=== PATIENT | male | born 1950 | race Caucasian/White ===

== ENCOUNTER 2016-07-02 07:39 | Observation (INO) | payer MEDICARE ==
[2016-07-02] MEDS ORDERED: NS 0.9% 1000 ML* 1,000 ML IV ONE ×2 (07:58→12:30)
[2016-07-02] MEDS ORDERED: Piperac/Tazob 3.375 gm in NS* 3.375 GM/100 ML BAG IVPB ONE (08:00)
--- NOTE | 2016-07-02 08:41 | RAD ---
INDICATION: Short of breath. Cough. COMPARISON: August 09, 2008 TECHNIQUE: PA and lateral dual-energy views were obtained. FINDINGS: Bones/Soft Tissues: There are no acute bony findings. Cardiomediastinal: The cardiomediastinal silhouette is normal. Lungs: There are no infiltrates. Pleura: There are no pleural effusions. Other: None IMPRESSION: NO ACTIVE DISEASE
[2016-07-02 08:46] LABS: Albumin 4.2 g/dL (3.2-5.2); BUN/Creatinine Ratio 16.7 (8-20); C Reactive Protein 183.73 mg/L (< 5.00); Calcium 9.3 mg/dL (8.6-10.3); EGFR African American 82.9 (>60); EGFR Non-African American 64.5 (>60); Globulin 3.6 g/dL (2-4); Total Bilirubin 0.7 mg/dL (0.2-1.0); Total Protein 7.8 g/dL (6.4-8.9)
[2016-07-02 08:47] LABS: Troponin I 0.03 ng/mL (<0.04)
[2016-07-02 08:52] LABS: Hematocrit 48 % (42-52); Hemoglobin 16.3 g/dl (14.0-18.0); Mean Corpuscular HGB Conc 34 g/dl (31-36); Mean Corpuscular Hemoglobin 31 pg (27-31); Mean Corpuscular Volume 91 fL (80-94); Mean Platelet Volume 8 um3 (7.4-10.4); Red Blood Count 5.33 10^6/ul (4.0-5.4); Red Cell Distribution Width 16 % (10.5-15); White Blood Count 9.7 10^3/ul (3.5-10.8)
[2016-07-02 08:59] LABS: Add Diff/Slide Review? Slide Review Added; Comments Flag Yes
[2016-07-02] MEDS ORDERED: Iohexol 350* (CONTRAST) 500 ML MDV IV ONE (10:35)
--- NOTE | 2016-07-02 10:58 | RAD ---
INDICATION: Chest pain. Short of breath. Evaluate for pulmonary embolus. COMPARISON: Chest x-ray July 02, 2016; CT chest October 18, 2015 TECHNIQUE: Axial source images were obtained from the thoracic inlet to the hemidiaphragms following administration of [address] angiographic technique was utilized. Coronal and sagittal reconstructed images were acquired. CHEST FINDINGS: Neck/thyroid: The visualized neck to include the thyroid appear normal. Chest wall: There are no acute abnormalities of the bony thorax or chest wall. There is no supraclavicular, infraclavicular, or axillary lymphadenopathy. Lungs : There are subtle, patchy, peripheral interstitial infiltrates in the upper and lower lung bravo bilaterally most consistent with an acute pneumonitis. The pulmonary interstitium appears normal. There are no endobronchial lesions. Cardiomediastinal structures: There is no CT evidence of acute pulmonary embolic disease. The heart is normal in size. There is no pericardial effusion. There is no evidence of aortic aneurysm or dissection. There are mildly prominent subcarinal lymph nodes measuring up to 1.3 cm in short axis. These are new relative to the earlier CT examination and may be reactive but should be reassessed. The patient is scheduled for low dose screening CT evaluation of the chest in September 2016 in these lymph nodes could probably be assessed with this technique. The esophagus appears normal. Pleura : There are no pleural-based masses or effusions. Other: None. IMPRESSION: NO CT EVIDENCE OF ACUTE PULMONARY EMBOLIC DISEASE. PATCHY INTERSTITIAL PNEUMONITIS. MILD MEDIASTINAL LYMPHADENOPATHY. SUGGEST FOLLOW-UP (SEE ABOVE)
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
[2016-07-02] MEDS ORDERED: LORazepam TAB(*) 1 MG PO ONE (12:30)
[2016-07-02] MEDS ORDERED: Ondansetron INJ* 2 MG/ML VIAL IV PRN (12:30)
[2016-07-02] MEDS ORDERED: Acetaminophen TAB* 325 MG PO PRN (12:30)
[2016-07-02] MEDS ORDERED: Albuterol 2.5 MG/3 ML NEB.SOL* (0.083%) INH PRN (12:30)
[2016-07-02] MEDS ORDERED: Dextrose 50% Syringe 50 ML* 25 GM/50 ML SYRINGE IV PUSH PRN (12:30)
[2016-07-02] MEDS ORDERED: Piperac/Tazob 3.375 gm in NS* 3.375 GM/100 ML BAG IVPB SCH (13:00)
[2016-07-02] MEDS ORDERED: Nicotine PATCH 21 MG/24 HR* PATCH TRANSDERM SCH (13:00)
[2016-07-02] MEDS: methylPREDNISolone SOD SUCC* 125 MG 2 ML VIAL IV SCH (13:22)
[2016-07-02] MEDS: NS 0.9% 1000 ML* 1,000 ML IV SCH ×2 (13:22→13:24)
[2016-07-02] MEDS: cloNIDine TAB* 0.1 MG PO SCH ×2 (13:23→20:01)
[2016-07-02] MEDS: HYDROcodone/ACETAMIN 5-325 MG* 1 TAB PO PRN ×2 (13:23→20:00)
[2016-07-02] MEDS: Heparin VIAL(*) 5000 UNITS/ML VIAL (FIVE THOUSAND) SUBCUT SCH ×2 (13:27→23:40)
[2016-07-02] MEDS: Piperac/Tazob 3.375 gm in NS* 3.375 GM/100 ML BAG IVPB SCH ×2 (14:08→23:31)
[2016-07-02] MEDS: Gabapentin CAP(*) 400 MG PO SCH ×2 (14:10→20:00)
[2016-07-02] MEDS: Albuterol/Ipratropium NEB.SOL* Albuterol 2.5 MG/Ipratropium 0.5 MG 3 ML INH SCH ×3 (15:25→23:23)
[2016-07-02 17:01] LABS: Urine Bilirubin Negative (Negative); Urine Glucose 3+(>=500 mg/dL) (Negative); Urine Nitrite Negative (Negative)
[2016-07-02] MEDS: Insulin LISPRO* 1 UNITS UNIT SUBCUT SCH (17:21)
[2016-07-02] MEDS: Codeine TAB* 15 MG PO PRN ×2 (17:21→23:33)
[2016-07-02] MEDS: Mometasone/Formoter 200/5 MDI INH SCH (19:37)
[2016-07-02] MEDS: Mirtazapine TAB* 15 MG PO SCH (20:00)
[2016-07-02] MEDS: busPIRone TAB* 10 MG PO SCH (20:00)
[2016-07-02] MEDS: Atorvastatin* 10 MG TAB PO SCH (20:01)
[2016-07-02] MEDS ORDERED: Nicotine Inhaler* 10 MG AMP INH PRN (20:55)
[2016-07-02] MEDS ORDERED: Nicotine Patch Removal NOTE FOLLOW UP SCH (21:00)
[2016-07-02] MEDS ORDERED: Insulin GLARGINE(*) 1 UNITS UNIT SUBCUT SCH (21:00)
[2016-07-02] MEDS ORDERED: Mouth Piece, Nicotine* 1 EACH CARTRIDGE ONE (21:30)
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
[2016-07-02] MEDS: oxyCODONE TAB* 5 MG TAB PO PRN (23:31)
[2016-07-02] MEDS: Zolpidem TAB* 10 MG PO PRN (23:31)
[2016-07-03] MEDS: methylPREDNISolone SOD SUCC* 125 MG 2 ML VIAL IV SCH ×2 (01:29→14:09)
[2016-07-03] MEDS: Albuterol/Ipratropium NEB.SOL* Albuterol 2.5 MG/Ipratropium 0.5 MG 3 ML INH SCH ×7 (03:13→23:49)
[2016-07-03] MEDS: Piperac/Tazob 3.375 gm in NS* 3.375 GM/100 ML BAG IVPB SCH ×3 (05:42→21:56)
[2016-07-03] MEDS: Heparin VIAL(*) 5000 UNITS/ML VIAL (FIVE THOUSAND) SUBCUT SCH ×3 (05:43→21:56)
[2016-07-03] MEDS: oxyCODONE TAB* 5 MG TAB PO PRN ×3 (06:14→22:03)
[2016-07-03 06:45] LABS: Hematocrit 42 % (42-52); Hemoglobin 14.4 g/dl (14.0-18.0); Mean Corpuscular HGB Conc 34 g/dl (31-36); Mean Corpuscular Hemoglobin 31 pg (27-31); Mean Corpuscular Volume 92 fL (80-94); Mean Platelet Volume 8 um3 (7.4-10.4); Red Blood Count 4.64 10^6/ul (4.0-5.4); Red Cell Distribution Width 17 % (10.5-15)
[2016-07-03 07:02] LABS: BUN/Creatinine Ratio 16.4 (8-20); Calcium 8.9 mg/dL (8.6-10.3); EGFR African American 81.3 (>60); EGFR Non-African American 63.2 (>60); Potassium 4.1 mmol/L (3.5-5.0)
[2016-07-03] MEDS: Mometasone/Formoter 200/5 MDI INH SCH ×2 (07:50→19:37)
[2016-07-03] MEDS: Gabapentin CAP(*) 400 MG PO SCH ×3 (08:42→21:56)
[2016-07-03] MEDS: busPIRone TAB* 10 MG PO SCH ×2 (08:43→21:55)
[2016-07-03] MEDS: cloNIDine TAB* 0.1 MG PO SCH ×3 (08:43→21:55)
[2016-07-03] MEDS: Insulin LISPRO* 1 UNITS UNIT SUBCUT SCH ×3 (08:44→17:23)
[2016-07-03] MEDS ORDERED: Albuterol/Ipratropium NEB.SOL* Albuterol 2.5 MG/Ipratropium 0.5 MG 3 ML INH SCH (10:00)
[2016-07-03] MEDS: Nicotine PATCH 21 MG/24 HR* PATCH TRANSDERM SCH (10:09)
--- NOTE | 2016-07-03 10:53 | PN ---
Subjective Date of Service: 07/03/16 Interval History: Pt reports he feels much better today but continues to have harsh cough. non- productive. Reports initially when his cough started he also had nasal congestion. Denies SOB or CP. no fevers or chills. Denies N/V/D. Reports good appetite. Denies Hx of COPD dx in the past. reports 20+ smoking hx. Objective Active Medications: Acetaminophen (Tylenol Tab*) 650 mg PO Q4H PRN PRN Reason: FEVER/PAIN Albuterol (Ventolin 2.5 Mg/3 Ml Neb.Krista*) 2.5 mg INH Q2H PRN PRN Reason: SOB/WHEEZING Albuterol/Ipratropium (Duoneb (Albuterol 2.5 Mg/Ipratropium 0.5 Mg)) 1 neb INH Q4HR [facility] Atorvastatin Calcium (Lipitor*) 10 mg PO 2100 [facility] Last Admin: 07/02/16 20:01 Dose: 10 mg Buspirone HCl (Buspar Tab*) 30 mg PO BID [facility] Last Admin: 07/03/16 08:43 Dose: 30 mg Clonidine HCl (Catapres Tab*) 0.1 mg PO TID [facility] Last Admin: 07/03/16 08:43 Dose: 0.1 mg Codeine Sulfate (Codeine Tab*) 15 mg PO Q4H PRN PRN Reason: COUGH Last Admin: 07/02/16 23:33 Dose: 15 mg Dextrose (D50w Syringe 50 Ml*) 12.5 gm IV PUSH .FOR FS < 60 - SS PRN PRN Reason: FS < 60 Gabapentin (Neurontin Cap(*)) 800 mg PO TID [facility] Last Admin: 07/03/16 08:42 Dose: 800 mg Heparin Sodium (Porcine) (Heparin Vial(*)) 5,000 units SUBCUT Q8HR [facility] Last Admin: 07/03/16 05:43 Dose: Not Given Sodium Chloride (Ns 0.9% 1000 Ml*) 1,000 mls @ 100 mls/hr IV PER RATE [facility] Last Admin: 07/02/16 13:24 Dose: 100 mls/hr Piperacillin Sod/Tazobactam Sod (Zosyn 3.375 Gm In Ns Premix*) 3.375 gm in 100 mls @ 25 mls/hr IVPB Q8H [facility] Last Admin: 07/03/16 05:42 Dose: 25 mls/hr Insulin Glargine (Lantus(*)) 10 units SUBCUT BEDTIME [facility] Last Admin: 07/02/16 20:01 Dose: 10 units Insulin Human Lispro (Humalog*) 0 units SUBCUT AC [facility] PRN Reason: Protocol Last Admin: 07/03/16 08:44 Dose: 12 unit Methylprednisolone Sodium Succinate (Solu-Medrol*) 60 mg IV Q12H [facility] Last Admin: 07/03/16 01:29 Dose: 60 mg Mirtazapine (Remeron Tab*) 45 mg PO BEDTIME [facility] Last Admin: 07/02/16 20:00 Dose: 45 mg Mometasone Furoate/Formoterol Fumar (Dulera 200/5 Mdi*) 2 puff INH BID [facility] Last Admin: 07/03/16 07:50 Dose: 2 puff Nicotine (Nicotine Inhaler*) 10 mg INH Q2H PRN PRN Reason: CRAVING Last Admin: 07/02/16 23:32 Dose: 10 mg Nicotine (Nicotine Patch 21 Mg/24 Hr*) 1 patch TRANSDERM Q24H [facility] Last Admin: 07/03/16 10:09 Dose: 1 patch Ondansetron HCl (Zofran Inj*) 4 mg IV Q6H PRN PRN Reason: NAUSEA Oxycodone HCl (Roxycodone Tab*) 5 mg PO Q4H PRN PRN Reason: PAIN Last Admin: 07/03/16 06:14 Dose: 5 mg Pharmacy Profile Note (Nicotine Patch Removal Note*) 1 note FOLLOW UP 2100 [facility] Zolpidem Tartrate (Ambien Tab*) 10 mg PO BEDTIME PRN PRN Reason: INSOMNIA Last Admin: 07/02/16 23:31 Dose: 10 mg Vital Signs 07/02/16 07/03/16 07/03/16 23:48 01:31 01:33 Temperature 98.2 F Pulse Rate 108 Respiratory 16 16 16 Rate Blood Pressure 152/75 (mmHg) O2 Sat by Pulse 95 Oximetry 07/03/16 07/03/16 07/03/16 03:13 06:14 07:54 Temperature Pulse Rate 92 94 Respiratory 20 18 16 Rate Blood Pressure (mmHg) O2 Sat by Pulse 98 96 Oximetry 04/10/17 04/10/17 04/10/17 08:08 08:14 08:42 Temperature 98.0 F Pulse Rate 105 Respiratory 16 16 18 Rate Blood Pressure 138/77 (mmHg) O2 Sat by Pulse 96 Oximetry Oxygen Devices in Use Now: Nasal Cannula - 2L NC Appearance: 66 yo male sitting up in a chair in NAD. A+O x3 - noted cough Eyes: No Scleral Icterus, PERRLA Ears/Nose/Mouth/Throat: NL Teeth, Lips, Gums, Mucous Membranes Moist Neck: NL Appearance and Movements; NL JVP Respiratory: Symmetrical Chest Expansion and Respiratory Effort, - - right LL crackles, good aeration throughout otherwise Cardiovascular: NL Sounds; No Murmurs; No JVD, RRR, No Edema Abdominal: NL Sounds; No Tenderness; No Distention Extremities: No Edema, No Clubbing, Cyanosis Skin: No Rash or Ulcers, No Nodules or Sclerosis Neurological: Alert and Oriented x 3, NL Sensation, NL Gait, NL Muscle Strength and Tone Lines/Tubes/Other Access: Clean, Dry and Intact Peripheral IV Nutrition: Taking PO's Result Diagrams: 07/03/16 06:10 07/03/16 06:10 Additional Lab and Data: Lab Results 07/02/16 07/02/16 07/02/16 Range/Units 08:01 08:15 08:15 WBC 9.7 (3.5-10.8) 10^3/ul RBC 5.33 (4.0-5.4) 10^6/ul Hgb 16.3 (14.0-18.0) g/dl Hct 48 (42-52) % MCV 91 (80-94) fL MCH 31 (27-31) pg MCHC 34 (31-36) g/dl RDW 16 H (10.5-15) % Plt Count 192 (150-450) 10^3/ul MPV 8 (7.4-10.4) um3 Neut % (Auto) 86.5 H (38-83) % Lymph % (Auto) 4.2 L (25-47) % [place] % (Auto) 8.7 (1-9) % Eos % (Auto) 0.1 (0-6) % Baso % (Auto) 0.5 (0-2) % Absolute Neuts (auto) 8.4 H (1.5-7.7) 10^3/ul Absolute Lymphs (auto) 0.4 L (1.0-4.8) 10^3/ul Absolute Monos (auto) 0.9 H (0-0.8) 10^3/ul Absolute Eos (auto) 0 (0-0.6) 10^3/ul Absolute Basos (auto) 0 (0-0.2) 10^3/ul Absolute Nucleated RBC 0.01 10^3/ul Nucleated RBC % 0.1 INR (Anticoag Therapy) 0.96 (0.89-1.11) APTT 31.1 (26.0-36.3) seconds Fibrinogen 652 H (110.8-404.3) mg/dL Sodium (133-145) mmol/L Potassium (3.5-5.0) mmol/L Chloride (101-111) mmol/L Carbon Dioxide (22-32) mmol/L Anion Gap (2-11) mmol/L BUN (6-24) mg/dL Creatinine (0.67-1.17) mg/dL Est GFR ( Amer) (>60) Est GFR (Non-Af Amer) (>60) BUN/Creatinine Ratio (8-20) Glucose (70-100) mg/dL Lactic Acid (0.5-2.0) mmol/L Calcium (8.6-10.3) mg/dL Total Bilirubin (0.2-1.0) mg/dL AST (13-39) U/L ALT (7-52) U/L Alkaline Phosphatase (34-104) U/L Total Creatine Kinase (10-223) U/L Troponin I (<0.04) ng/mL C-Reactive Protein (< 5.00) mg/L B-Natriuretic Peptide ( - 100) pg/mL Total Protein (6.4-8.9) g/dL Albumin (3.2-5.2) g/dL Globulin (2-4) g/dL Albumin/Globulin Ratio (1-3) Influenza A (Rapid) Negative (Negative) Influenza B (Rapid) Negative (Negative) 07/02/16 07/02/16 07/02/16 Range/Units 08:15 08:15 08:15 WBC (3.5-10.8) 10^3/ul RBC (4.0-5.4) 10^6/ul Hgb (14.0-18.0) g/dl Hct (42-52) % MCV (80-94) fL MCH (27-31) pg MCHC (31-36) g/dl RDW (10.5-15) % Plt Count (150-450) 10^3/ul MPV (7.4-10.4) um3 Neut % (Auto) (38-83) % Lymph % (Auto) (25-47) % [place] % (Auto) (1-9) % Eos % (Auto) (0-6) % Baso % (Auto) (0-2) % Absolute Neuts (auto) (1.5-7.7) 10^3/ul Absolute Lymphs (auto) (1.0-4.8) 10^3/ul Absolute Monos (auto) (0-0.8) 10^3/ul Absolute Eos (auto) (0-0.6) 10^3/ul Absolute Basos (auto) (0-0.2) 10^3/ul Absolute Nucleated RBC 10^3/ul Nucleated RBC % INR (Anticoag Therapy) (0.89-1.11) APTT (26.0-36.3) seconds Fibrinogen (110.8-404.3) mg/dL Sodium 131 L (133-145) mmol/L Potassium 4.0 (3.5-5.0) mmol/L Chloride 96 L (101-111) mmol/L Carbon Dioxide 22 (22-32) mmol/L Anion Gap 13 H (2-11) mmol/L BUN 19 (6-24) mg/dL Creatinine 1.14 (0.67-1.17) mg/dL Est GFR ( Amer) 82.9 (>60) Est GFR (Non-Af Amer) 64.5 (>60) BUN/Creatinine Ratio 16.7 (8-20) Glucose 243 H (70-100) mg/dL Lactic Acid 1.3 (0.5-2.0) mmol/L Calcium 9.3 (8.6-10.3) mg/dL Total Bilirubin 0.70 (0.2-1.0) mg/dL AST 23 (13-39) U/L ALT 22 (7-52) U/L Alkaline Phosphatase 68 (34-104) U/L Total Creatine Kinase 72 (10-223) U/L Troponin I 0.03 (<0.04) ng/mL C-Reactive Protein 183.73 H (< 5.00) mg/L B-Natriuretic Peptide 53 ( - 100) pg/mL Total Protein 7.8 (6.4-8.9) g/dL Albumin 4.2 (3.2-5.2) g/dL Globulin 3.6 (2-4) g/dL Albumin/Globulin Ratio 1.2 (1-3) Influenza A (Rapid) (Negative) Influenza B (Rapid) (Negative) Microbiology and Other Data: Microbiology 07/02/16 16:46 Gram Stain - Preliminary Sputum 07/02/16 16:45 Legionella Urinary Antigen - Final Urine Negative Legionella Streptococcus pneumoniae Ag Screen - Final Negative S. pneumo Antigen Assess/Plan/Problems-Billing Assessment: 66 yo male with a PMH of diabetes, RA and depression who presented to the ED 07/02 with c/o of cough and SOB with report of vomiting found to have a pneumonitis on CTA. - Patient Problems (1) Pneumonitis Comment: - secondary to aspiration. Clinically improving but continues to require 2L NC. - continue zosyn, nebs. - titrate steroids (2) Diabetes Comment: - uncontrolled on steroids. Continue lispro SS with lantus Q 24hours (increase home lantus) (3) RA (rheumatoid arthritis) Comment: - followed Q3mo by rheumotologist (4) DVT prophylaxis Comment: HSQ Status and Disposition: OBV flip to inpatient for aspiration pneumonitis continuing to require oxygen.
[2016-07-03] MEDS ORDERED: Insulin GLARGINE(*) 1 UNITS UNIT SUBCUT ONE (13:13)
[2016-07-03] MEDS ORDERED: Insulin LISPRO* 1 UNITS UNIT SUBCUT ONE (13:14)
[2016-07-03] MEDS ORDERED: Dextrose 50% Syringe 50 ML* 25 GM/50 ML SYRINGE IV PUSH PRN (13:14)
[2016-07-03] MEDS ORDERED: NS 0.9% 1000 ML* 1,000 ML IV ONE (13:15)
[2016-07-03] MEDS: Codeine TAB* 15 MG PO PRN (15:50)
[2016-07-03] MEDS ORDERED: Nicotine Patch Removal NOTE FOLLOW UP SCH (21:00)
[2016-07-03] MEDS ORDERED: Insulin GLARGINE(*) 1 UNITS UNIT SUBCUT SCH (21:00)
[2016-07-03] MEDS ORDERED: Nicotine Patch Removal NOTE PATCH OFF SCH (21:00)
[2016-07-03] MEDS: Atorvastatin* 10 MG TAB PO SCH (21:55)
[2016-07-03] MEDS: Mirtazapine TAB* 15 MG PO SCH (21:56)
[2016-07-03] MEDS: Zolpidem TAB* 10 MG PO PRN (22:03)
[2016-07-04] MEDS: Albuterol/Ipratropium NEB.SOL* Albuterol 2.5 MG/Ipratropium 0.5 MG 3 ML INH SCH ×2 (03:36→09:07)
[2016-07-04] MEDS: Piperac/Tazob 3.375 gm in NS* 3.375 GM/100 ML BAG IVPB SCH (05:26)
[2016-07-04] MEDS: Heparin VIAL(*) 5000 UNITS/ML VIAL (FIVE THOUSAND) SUBCUT SCH ×2 (05:26→12:37)
[2016-07-04 06:28] LABS: Hematocrit 39 % (42-52); Hemoglobin 13.1 g/dl (14.0-18.0); Mean Corpuscular HGB Conc 33 g/dl (31-36); Mean Corpuscular Hemoglobin 31 pg (27-31); Mean Corpuscular Volume 92 fL (80-94); Mean Platelet Volume 8 um3 (7.4-10.4); Red Blood Count 4.29 10^6/ul (4.0-5.4); Red Cell Distribution Width 17 % (10.5-15); White Blood Count 11.5 10^3/ul (3.5-10.8)
[2016-07-04 06:42] LABS: BUN/Creatinine Ratio 19.7 (8-20); Calcium 8.8 mg/dL (8.6-10.3); EGFR African American 76.7 (>60); EGFR Non-African American 59.6 (>60); Potassium 4.2 mmol/L (3.5-5.0)
[2016-07-04 08:23] VITALS: BP 130/76
[2016-07-04] MEDS ORDERED: predniSONE TAB* 20 MG PO SCH (08:30)
[2016-07-04] MEDS ORDERED: NS 0.9% 1000 ML* 1,000 ML IV SCH (08:30)
[2016-07-04] MEDS: busPIRone TAB* 10 MG PO SCH (08:33)
[2016-07-04] MEDS: cloNIDine TAB* 0.1 MG PO SCH ×2 (08:33→12:59)
[2016-07-04] MEDS: Gabapentin CAP(*) 400 MG PO SCH ×2 (08:34→12:58)
[2016-07-04] MEDS: Nicotine PATCH 21 MG/24 HR* PATCH TRANSDERM SCH (08:34)
[2016-07-04] MEDS: Insulin LISPRO* 1 UNITS UNIT SUBCUT SCH ×2 (08:36→12:59)
[2016-07-04] MEDS: Mometasone/Formoter 200/5 MDI INH SCH (09:06)
--- NOTE | 2016-07-04 12:57 | DCNOTE ---
Subjective Date of Service: 07/04/16 Interval History: Patient reports he "feels great" stating he would like to go home. Denies sob, no wheezing, no oxygen requirements. reports occasional nonproductive cough. No fevers or chills. No N/V/D. Objective Active Medications: Acetaminophen (Tylenol Tab*) 650 mg PO Q4H PRN PRN Reason: FEVER/PAIN Albuterol (Ventolin 2.5 Mg/3 Ml Neb.Krista*) 2.5 mg INH Q2H PRN PRN Reason: SOB/WHEEZING Atorvastatin Calcium (Lipitor*) 10 mg PO 2100 [facility] Last Admin: 07/03/16 21:55 Dose: 10 mg Buspirone HCl (Buspar Tab*) 30 mg PO BID [facility] Last Admin: 07/04/16 08:33 Dose: 30 mg Clonidine HCl (Catapres Tab*) 0.1 mg PO TID [facility] Last Admin: 07/04/16 08:33 Dose: 0.1 mg Codeine Sulfate (Codeine Tab*) 15 mg PO Q4H PRN PRN Reason: COUGH Last Admin: 07/03/16 15:50 Dose: 15 mg Dextrose (D50w Syringe 50 Ml*) 12.5 gm IV PUSH .FOR FS < 60 - SS PRN PRN Reason: FS < 60 Dextrose (D50w Syringe 50 Ml*) 12.5 gm IV PUSH .FOR FS < 60 - SS PRN PRN Reason: FS < 60 Gabapentin (Neurontin Cap(*)) 800 mg PO TID [facility] Last Admin: 07/04/16 08:34 Dose: 800 mg Heparin Sodium (Porcine) (Heparin Vial(*)) 5,000 units SUBCUT Q8HR [facility] Last Admin: 07/04/16 12:37 Dose: Not Given Insulin Glargine (Lantus(*)) 12 units SUBCUT BEDTIME [facility] Last Admin: 07/03/16 21:56 Dose: 12 units Insulin Human Lispro (Humalog*) 0 units SUBCUT AC [facility] PRN Reason: Protocol Last Admin: 07/04/16 08:36 Dose: 9 unit Mirtazapine (Remeron Tab*) 45 mg PO BEDTIME [facility] Last Admin: 07/03/16 21:56 Dose: 45 mg Mometasone Furoate/Formoterol Fumar (Dulera 200/5 Mdi*) 2 puff INH BID [facility] Last Admin: 07/04/16 09:06 Dose: 2 puff Nicotine (Nicotine Inhaler*) 10 mg INH Q2H PRN PRN Reason: CRAVING Last Admin: 07/02/16 23:32 Dose: 10 mg Nicotine (Nicotine Patch 21 Mg/24 Hr*) 1 patch TRANSDERM Q24H [facility] Last Admin: 07/04/16 08:34 Dose: 1 patch Ondansetron HCl (Zofran Inj*) 4 mg IV Q6H PRN PRN Reason: NAUSEA Oxycodone HCl (Roxycodone Tab*) 5 mg PO Q4H PRN PRN Reason: PAIN Last Admin: 07/03/16 22:03 Dose: 5 mg Pharmacy Profile Note (Nicotine Patch Removal Note*) 1 note FOLLOW UP 2100 [facility] Last Admin: 07/03/16 23:18 Dose: 1 note Prednisone (Deltasone Tab*) 40 mg PO DAILY WITH MEAL [facility] Last Admin: 07/04/16 08:33 Dose: 40 mg Zolpidem Tartrate (Ambien Tab*) 10 mg PO BEDTIME PRN PRN Reason: INSOMNIA Last Admin: 07/03/16 22:03 Dose: 10 mg Vital Signs 07/03/16 07/03/16 07/03/16 14:10 15:50 16:20 Temperature Pulse Rate 96 Respiratory 18 18 Rate Blood Pressure (mmHg) O2 Sat by Pulse 99 Oximetry 07/03/16 07/03/16 07/03/16 19:35 21:56 22:03 Temperature Pulse Rate 97 Respiratory 16 18 18 Rate Blood Pressure (mmHg) O2 Sat by Pulse 99 Oximetry 07/03/16 07/03/16 07/03/16 23:09 23:36 23:56 Temperature 97.6 F Pulse Rate 97 98 Respiratory 18 17 16 Rate Blood Pressure 125/87 130/78 (mmHg) O2 Sat by Pulse 59 94 Oximetry 07/04/16 07/04/16 07/04/16 00:00 00:03 07:41 Temperature 97.8 F Pulse Rate 81 Respiratory 16 16 Rate Blood Pressure 130/76 (mmHg) O2 Sat by Pulse 98 97 Oximetry 07/04/16 07/04/16 07/04/16 08:00 08:34 09:08 Temperature Pulse Rate Respiratory 18 Rate Blood Pressure (mmHg) O2 Sat by Pulse 99 99 Oximetry 07/04/16 07/04/16 09:09 12:26 Temperature Pulse Rate 75 Respiratory 18 18 Rate Blood Pressure (mmHg) O2 Sat by Pulse 99 Oximetry Oxygen Devices in Use Now: None Appearance: 66 yo male well developed sitting up in bed in NAD. A+O x3 Eyes: No Scleral Icterus, PERRLA Ears/Nose/Mouth/Throat: NL Teeth, Lips, Gums, Mucous Membranes Moist Neck: NL Appearance and Movements; NL JVP Respiratory: Symmetrical Chest Expansion and Respiratory Effort, Clear to Auscultation Cardiovascular: NL Sounds; No Murmurs; No JVD, RRR, No Edema Abdominal: NL Sounds; No Tenderness; No Distention Extremities: No Edema, No Clubbing, Cyanosis Skin: No Rash or Ulcers, No Nodules or Sclerosis Neurological: Alert and Oriented x 3, NL Sensation, NL Gait, NL Muscle Strength and Tone Lines/Tubes/Other Access: Clean, Dry and Intact Peripheral IV Nutrition: Taking PO's Result Diagrams: 07/04/16 05:19 07/04/16 05:19 Additional Lab and Data: Lab Results 07/02/16 07/02/16 07/02/16 Range/Units 08:01 08:15 08:15 WBC 9.7 (3.5-10.8) 10^3/ul RBC 5.33 (4.0-5.4) 10^6/ul Hgb 16.3 (14.0-18.0) g/dl Hct 48 (42-52) % MCV 91 (80-94) fL MCH 31 (27-31) pg MCHC 34 (31-36) g/dl RDW 16 H (10.5-15) % Plt Count 192 (150-450) 10^3/ul MPV 8 (7.4-10.4) um3 Neut % (Auto) 86.5 H (38-83) % Lymph % (Auto) 4.2 L (25-47) % [place] % (Auto) 8.7 (1-9) % Eos % (Auto) 0.1 (0-6) % Baso % (Auto) 0.5 (0-2) % Absolute Neuts (auto) 8.4 H (1.5-7.7) 10^3/ul Absolute Lymphs (auto) 0.4 L (1.0-4.8) 10^3/ul Absolute Monos (auto) 0.9 H (0-0.8) 10^3/ul Absolute Eos (auto) 0 (0-0.6) 10^3/ul Absolute Basos (auto) 0 (0-0.2) 10^3/ul Absolute Nucleated RBC 0.01 10^3/ul Nucleated RBC % 0.1 INR (Anticoag Therapy) 0.96 (0.89-1.11) APTT 31.1 (26.0-36.3) seconds Fibrinogen 652 H (110.8-404.3) mg/dL Sodium (133-145) mmol/L Potassium (3.5-5.0) mmol/L Chloride (101-111) mmol/L Carbon Dioxide (22-32) mmol/L Anion Gap (2-11) mmol/L BUN (6-24) mg/dL Creatinine (0.67-1.17) mg/dL Est GFR ( Amer) (>60) Est GFR (Non-Af Amer) (>60) BUN/Creatinine Ratio (8-20) Glucose (70-100) mg/dL Lactic Acid (0.5-2.0) mmol/L Calcium (8.6-10.3) mg/dL Total Bilirubin (0.2-1.0) mg/dL AST (13-39) U/L ALT (7-52) U/L Alkaline Phosphatase (34-104) U/L Total Creatine Kinase (10-223) U/L Troponin I (<0.04) ng/mL C-Reactive Protein (< 5.00) mg/L B-Natriuretic Peptide ( - 100) pg/mL Total Protein (6.4-8.9) g/dL Albumin (3.2-5.2) g/dL Globulin (2-4) g/dL Albumin/Globulin Ratio (1-3) Influenza A (Rapid) Negative (Negative) Influenza B (Rapid) Negative (Negative) 07/02/16 07/02/16 07/02/16 Range/Units 08:15 08:15 08:15 WBC (3.5-10.8) 10^3/ul RBC (4.0-5.4) 10^6/ul Hgb (14.0-18.0) g/dl Hct (42-52) % MCV (80-94) fL MCH (27-31) pg MCHC (31-36) g/dl RDW (10.5-15) % Plt Count (150-450) 10^3/ul MPV (7.4-10.4) um3 Neut % (Auto) (38-83) % Lymph % (Auto) (25-47) % [place] % (Auto) (1-9) % Eos % (Auto) (0-6) % Baso % (Auto) (0-2) % Absolute Neuts (auto) (1.5-7.7) 10^3/ul Absolute Lymphs (auto) (1.0-4.8) 10^3/ul Absolute Monos (auto) (0-0.8) 10^3/ul Absolute Eos (auto) (0-0.6) 10^3/ul Absolute Basos (auto) (0-0.2) 10^3/ul Absolute Nucleated RBC 10^3/ul Nucleated RBC % INR (Anticoag Therapy) (0.89-1.11) APTT (26.0-36.3) seconds Fibrinogen (110.8-404.3) mg/dL Sodium 131 L (133-145) mmol/L Potassium 4.0 (3.5-5.0) mmol/L Chloride 96 L (101-111) mmol/L Carbon Dioxide 22 (22-32) mmol/L Anion Gap 13 H (2-11) mmol/L BUN 19 (6-24) mg/dL Creatinine 1.14 (0.67-1.17) mg/dL Est GFR ( Amer) 82.9 (>60) Est GFR (Non-Af Amer) 64.5 (>60) BUN/Creatinine Ratio 16.7 (8-20) Glucose 243 H (70-100) mg/dL Lactic Acid 1.3 (0.5-2.0) mmol/L Calcium 9.3 (8.6-10.3) mg/dL Total Bilirubin 0.70 (0.2-1.0) mg/dL AST 23 (13-39) U/L ALT 22 (7-52) U/L Alkaline Phosphatase 68 (34-104) U/L Total Creatine Kinase 72 (10-223) U/L Troponin I 0.03 (<0.04) ng/mL C-Reactive Protein 183.73 H (< 5.00) mg/L B-Natriuretic Peptide 53 ( - 100) pg/mL Total Protein 7.8 (6.4-8.9) g/dL Albumin 4.2 (3.2-5.2) g/dL Globulin 3.6 (2-4) g/dL Albumin/Globulin Ratio 1.2 (1-3) Influenza A (Rapid) (Negative) Influenza B (Rapid) (Negative) Microbiology and Other Data: Microbiology 07/02/16 16:46 Gram Stain - Preliminary Sputum 07/02/16 16:45 Legionella Urinary Antigen - Final Urine Negative Legionella Streptococcus pneumoniae Ag Screen - Final Negative S. pneumo Antigen Assess/Plan/Problems-Billing Assessment: 66 yo male with a PMH of diabetes, RA and depression who presented to the ED 07/02 with c/o of cough and SOB with report of vomiting found to have a pneumonitis on CTA. - Patient Problems (1) Pneumonitis Comment: - secondary to aspiration. Clinically improving, no oxygen requirements. - CTA showing patchy interstitial pneumonitis - intially on zosyn - DC home on Augmentin, Prednisone taper (2) Diabetes Comment: - better control today, resume home meds (3) RA (rheumatoid arthritis) Comment: - followed Q3mo by rheumotologist (4) DVT prophylaxis Comment: HSQ Status and Disposition: inpatient for aspiration pneumonitis, plan for DC to home
--- NOTE | 2016-07-05 02:31 | DS ---
DISCHARGE SUMMARY: DATE OF ADMISSION: 07/02/16 DATE OF DISCHARGE: 07/04/16 ATTENDING PHYSICIAN: Dr. Hernandez *(report dictated by George High NP). PRIMARY CARE PROVIDER: Manoj Cooper MD. PRIMARY DIAGNOSES: 1. Aspiration pneumonitis. 2. Tobacco abuse. SECONDARY DIAGNOSES: 1. Type 2 diabetes. 2. Rheumatoid arthritis. 3. Hyperlipidemia. 4. Anxiety and depression. DISCHARGE MEDICATIONS: 1. Hydrocodone/acetaminophen 7.5/300 mg 1 tab p.o. q.6 hours p.r.n. 2. Lipitor 10 mg p.o. daily. 3. Metformin 500 mg p.o. daily. 4. Clonidine HCl 0.1 mg p.o. t.i.d. 5. Buspirone HCl 30 mg p.o. b.i.d. 6. Mirtazapine 90 mg p.o. at bedtime. 7. Lantus 10 units subcu bedtime. 8. Neurontin 800 mg p.o. t.i.d. NEW MEDICATIONS ON DISCHARGE: 1. Augmentin 875 mg p.o. b.i.d. x5 days. 2. Prednisone taper 30 mg p.o. x3 days, decrease by 10 mg every 3 days until done. HISTORY OF PRESENT ILLNESS AND HOSPITAL COURSE: Please see history and physical by Rufus Montoya NP, for full admission details, but in summary, this is a 66-year- old male with past medical history as stated above who presents to emergency department on 07/02/16 with complaint of nonproductive cough and shortness of breath. The patient reports that his symptoms initially stated with rhinorrhea, nasal congestion with body aches reporting the night before. He had a coughing spell and coughed so hard he vomited. He believes that at that time he possibly inhaled some vomit. That evening, he was able to go to bed, but shortly after, he was lying flat in the bed he reported it hurt to breathe and his chest felt very tight to take a deep breath in and he became concerned, so he came to the ER for further evaluation. He denies any fevers, but did admit to having chills that evening. He underwent a CT of the chest and was found to have pneumonitis. The patient was admitted to the hospitalist service to the medical unit. He was started on IV Zosyn and Solu-Medrol. On admission, the patient had leukocytosis and has remained afebrile throughout hospitalization. He was noted to have a CRP of 183.73. He was negative for influenza A and B. The patient has done very well throughout hospitalization, improving daily. Initially, he was requiring 2 L nasal cannula to maintain saturations above 94% , but since last evening the patient has been off oxygen on room air with O2 saturations of 98%. He reports minimal cough and overall reports he is close to his baseline and would like to be discharged home. The patient's blood cultures are no growth day 2. 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 I discussed this with Infectious Disease, Dr. 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 The patient has no symptoms of meningitis and has had no fevers throughout his illness. Denies any headaches, stiff neck. The patient is stable for discharge home with followup with his primary care, Dr. Cooper. He will be discharged home on a 5-day course of Augmentin and prednisone taper. The patient has been given smoking cessation education and reports at this time he plans on not continuing tobacco abuse, reporting he quit for 14 years and recently started smoking again. TIME SPENT: Approximately 60 minutes was spent on this discharge. GEORGE HIGH NP CC: Manoj Cooper MD* [id number]/[facility] #: [id number] [place]
== END 2016-07-04 14:10 | disposition home or self-care (01) ==
LOC: ED 07:39 → MED 11:32
PROVIDERS: ADMIT Internal Medicine; ATTEND Internal Medicine
DX: J69.0 Pneumonitis due to inhalation of food and vomit (principal); F17.210 Nicotine dependence, cigarettes, uncomplicated; E11.9 Type 2 diabetes mellitus without complications; Z79.4 Long term (current) use of insulin; M06.9 Rheumatoid arthritis, unspecified; E78.5 Hyperlipidemia, unspecified; F32.9 Major depressive disorder, single episode, unspecified; F41.9 Anxiety disorder, unspecified; R00.0 Tachycardia, unspecified; R06.02 Shortness of breath; I44.4 Left anterior fascicular block; Z79.899 Other long term (current) drug therapy
CPT/HCPCS: 36415; 71020; 71275; 80048; 80053; 81003; 82550; 83605; 83880; 84484; 85025; 85384; 85610; 85730; 86140; 87040; 87070; 87077; 87205; 87502; 87641; 87899; 93005; 94640; 94760; 96365; 96366; 96375; 96376; 99285; A9270-GY; G0378; J1644; J2543; J2930; J7512; Q9967

== ENCOUNTER 2020-10-22 06:44 | Inpatient (IN) ==
[2020-10-22 08:10] LABS: ABS Lymphocytes 0.8 10^3/ul (1.0-4.8); ABS Monocytes 1.3 10^3/ul (0-0.8); ABS Neutrophils 10.5 10^3/ul (1.5-7.7); Eosinophil % 0.4 %; Hematocrit 47 % (42-52); Hemoglobin 16.2 g/dL (14.0-18.0); Lymphocyte % 6.3 %; Mean Corpuscular HGB Conc 35 g/dL (31-36); Mean Corpuscular Hemoglobin 34 pg (27-31); Mean Corpuscular Volume 97 fL (80-94); Mean Platelet Volume 7.4 fL (7.4-10.4); Platelet Count 216 10^3/uL (150-450); Red Blood Count 4.78 10^6 /uL (4.18-5.48); Red Cell Distribution Width 12 % (10-15); White Blood Count 12.6 10^3/uL (3.5-10.8)
[2020-10-22 08:22] LABS: INR 1.1 (0.86-1.15)
[2020-10-22 08:25] LABS: Albumin 4.5 g/dL (3.2-5.2); Albumin/Globulin Ratio 1.9 (1-3); Calcium 9.3 mg/dL (8.6-10.3); EGFR African American 76.3 (>60); EGFR Non-African American 63.1 (>60); Globulin 2.4 g/dL (2-4); Potassium 4.7 mmol/L (3.5-5.0); Total Bilirubin 1.1 mg/dL (0.2-1.0); Total Protein 6.9 g/dL (6.4-8.9)
[2020-10-22] MEDS ORDERED: Dextrose 50% Syringe 50 ml 25 GM/50 ML SYRINGE IV PUSH PRN (09:43)
[2020-10-22] MEDS ORDERED: oxyCODONE/Acetamin 5/325 mg TAB PO PRN (09:46)
[2020-10-22] MEDS ORDERED: Ondansetron 4 mg VIAL 2 MG/ML 2 ml VIAL IV PRN (09:54)
[2020-10-22] MEDS ORDERED: Prochlorperazine 5 mg/ml 2 ml VIAL (10 mg) IV PRN (09:59)
[2020-10-22] MEDS: Nicotine PATCH 21 MG/24 HR PATCH TRANSDERM SCH (14:52)
[2020-10-22] MEDS: oxyCODONE/Acetamin 5/325 mg TAB PO PRN ×2 (16:35→21:11)
[2020-10-22] MEDS ORDERED: HYDROmorphone 1 MG/1 ML SYRINGE IV ONE (18:13)
[2020-10-22] MEDS: Insulin GLARGINE 100 un/ml 10 ml VIAL SUBCUT SCH (21:13)
[2020-10-23] MEDS: Nicotine PATCH 21 MG/24 HR PATCH TRANSDERM SCH (07:40)
[2020-10-23] MEDS ORDERED: ceFAZolin 2 GM in NS PREMIX 2 GM/100 ML BAG IVPB ONE ×2 (08:00→14:22)
[2020-10-23 08:09] LABS: EGFR African American 81.2 (>60); EGFR Non-African American 67.1 (>60); Potassium 3.8 mmol/L (3.5-5.0)
[2020-10-23] MEDS: oxyCODONE/Acetamin 5/325 mg TAB PO PRN ×2 (08:31→21:51)
[2020-10-23] MEDS ORDERED: Albuterol HFA INHALER 8 gm MDI INH PRN (10:04)
[2020-10-23] MEDS ORDERED: Albuterol 2.5mg/3 ml (0.083%) NEB.SOLN INH ONE (10:04)
[2020-10-23] MEDS ORDERED: HYDROmorphone 1 MG/1 ML SYRINGE IV SLOW PU PRN (10:18)
[2020-10-23] MEDS ORDERED: HYDROmorphone 1 MG/1 ML SYRINGE ONE ×3 (10:30→17:17)
[2020-10-23] MEDS ORDERED: fentaNYL 100 mcg/2 ml 50 MCG/ML VIAL ONE ×2 (13:58→16:19)
[2020-10-23] MEDS ORDERED: Dexamethasone IV 4 MG/ML VIAL 1 ml VIAL ONE (13:58)
[2020-10-23] MEDS ORDERED: Propofol 10 MG/ML 20 ML BTL ONE (13:58)
[2020-10-23] MEDS ORDERED: Lidocaine 2% PF 5 ML VIAL ONE (13:58)
[2020-10-23] MEDS ORDERED: Ondansetron 4 mg VIAL 2 MG/ML 2 ml VIAL ONE (13:58)
[2020-10-23] MEDS ORDERED: Ketamine HCL 50 mg/ml 10 ml VIAL (500 MG) ONE (13:59)
[2020-10-23] MEDS ORDERED: Midazolam 5 mg/5 ml VIAL 1 mg/ml 5 ml VIAL (5 mg) ONE (13:59)
[2020-10-23] MEDS ORDERED: Rocuronium 50 mg VIAL 10 mg/ml 5 ml VIAL (50 mg) ONE (15:02)
[2020-10-23] MEDS ORDERED: Metoprolol Tartrate 5 mg VIAL 5 ml VIAL (1 mg/ml) ONE (16:01)
[2020-10-23] MEDS ORDERED: Bupivacaine 0.25% SDV 30 ML ONE (16:22)
[2020-10-23] MEDS ORDERED: Phenylephrine 40 mcg/mL 10mL (400mcg) SYRINGE ONE (16:41)
[2020-10-23] MEDS ORDERED: Ondansetron 4 mg VIAL 2 MG/ML 2 ml VIAL IV PRN (16:51)
[2020-10-23] MEDS ORDERED: Naloxone 0.4 mg VIAL 0.4 mg/ml 1 ml VIAL IV PRN (16:51)
[2020-10-23] MEDS ORDERED: fentaNYL 100 mcg/2 ml 50 MCG/ML VIAL IV PRN (16:51)
[2020-10-23] MEDS ORDERED: EPHEDrine (Pressors) 50 MG/ML VIAL ONE (16:58)
[2020-10-23] MEDS: Insulin GLARGINE 100 un/ml 10 ml VIAL SUBCUT SCH (21:54)
[2020-10-23] MEDS: Erythromycin OPTH OINT APPLIC OINT RIGHT EYE SCH (22:37)
[2020-10-23] MEDS: ceFAZolin 1 GM X 3 DOSES POST-OP Q8H (AddVan) IVPB SCH (22:41)
[2020-10-24] MEDS: oxyCODONE/Acetamin 5/325 mg TAB PO PRN ×4 (02:45→14:41)
[2020-10-24 05:34] LABS: Hematocrit 36 % (42-52); Hemoglobin 12.5 g/dL (14.0-18.0); Mean Corpuscular HGB Conc 35 g/dL (31-36); Mean Corpuscular Hemoglobin 34 pg (27-31); Mean Corpuscular Volume 98 fL (80-94); Mean Platelet Volume 7.7 fL (7.4-10.4); Platelet Count 196 10^3/uL (150-450); Red Blood Count 3.68 10^6 /uL (4.18-5.48); Red Cell Distribution Width 12 % (10-15); White Blood Count 16.2 10^3/uL (3.5-10.8)
[2020-10-24 05:52] LABS: Calcium 8.1 mg/dL (8.6-10.3); EGFR African American 86.6 (>60); EGFR Non-African American 71.6 (>60); Potassium 4.5 mmol/L (3.5-5.0)
[2020-10-24] MEDS: ceFAZolin 1 GM X 3 DOSES POST-OP Q8H (AddVan) IVPB SCH ×2 (07:48→15:13)
[2020-10-24] MEDS: Erythromycin OPTH OINT APPLIC OINT RIGHT EYE SCH ×2 (07:55→14:42)
[2020-10-24] MEDS: Nicotine PATCH 21 MG/24 HR PATCH TRANSDERM SCH (07:57)
[2020-10-24 11:29] VITALS: BP 119/74
== END 2020-10-24 16:06 | disposition home or self-care (01) | DRG 522 ==
LOC: ED 06:44 → SSU 11:30
PROVIDERS: ADMIT Orthopaedic Surgery Adult Reconstructive Orthopaedic Surgery; ATTEND Internal Medicine